=== PATIENT | female | born 1985 | race Caucasian/White ===

== ENCOUNTER 2024-04-03 11:40 | Outpatient (CLI) | payer OTHER | END 2024-04-03 11:41 | disposition home or self-care (01) | LOC: BICULT 11:40 | PROVIDERS: ATTEND Advanced Practice Midwife | DX: O09.93 Supervision of high risk pregnancy, unspecified, third trimester (principal); Z3A.31 31 weeks gestation of pregnancy | CPT/HCPCS: 76805 ==